=== PATIENT | female | born 1980 | race Hispanic/Latino ===

== ENCOUNTER 2018-07-25 10:40 | Observation (INO) | payer OTHER ==
[2018-07-25] MEDS ORDERED: Lactated Ringer's 1,000 ML IV ONE ×2 (11:27→15:20)
[2018-07-25 11:32] LABS: HEMOGLOBIN 12.7 g/dL (12.0-16.0); MEAN CELL VOLUME 98.2 fl (81.0-99.0); MEAN CORPUSCULAR HEMOGLOBIN 33.6 pg (27.0-31.0); MEAN CORPUSCULAR HGB CONC 34.2 g/dL (33.0-37.0); RBC 3.77 Mil/uL (3.80-5.20); RED CELL DISTRIBUTION WIDTH 12.7 % (11.5-14.5); WHITE BLOOD COUNT 3.5 K/uL (4.8-10.8)
--- NOTE | 2018-07-25 13:50 | CP.SDSHP ---
Same Day Surgery H & P - History Proposed Procedure: Robotic assisted laparoscopy Pre-Op Diagnosis: Endometriosis - Previous Medical/Surgical History Comments: patient instructed to start lovenox POD#1. patient instructed on signs and symptoms of DVT/PE and instructed to go to ER if any present Previous Surgical History: wisdom teeth. egg retrieval. appendectomy - Allergies Allergies: Allergies No Known Allergies Allergy (Verified 07/15/18 17:40) - Physical Exam Vital Signs: Vital Signs 07/25/18 11:26 Temperature 98.5 F Pulse Rate 59 L Respiratory 16 Rate Blood Pressure 92/55 L O2 Sat by Pulse 98 Oximetry Mental Status: Alert & Oriented x3 Neuro: WNL Lungs: WNL - {Optional Preform as Required} Abdomen: WNL - Impression Impression: 38F with endometriosis for laparoscopic resection of endometriosis Pt. Evaluated Today:Candidate for Anesthesia & Procedure: Yes - Date & Time Date: 07/25/18 Time: 13:50 Short Stay Discharge - Short Stay Discharge Admitting Diagnosis/Reason for Visit: N80.0 Disposition: HOME/ ROUTINE Past Patient History - Past Medical History & Family History Past Medical History?: Yes Past Family History: Reviewed and not pertinent - Past Social History Smoking Status: Never Smoked - CARDIAC Hx Cardiac Disorders: No - PULMONARY Hx Respiratory Disorders: No - NEUROLOGICAL Hx Neurological Disorder: No - HEENT Hx HEENT Problems: No - RENAL Hx Chronic Kidney Disease: No - ENDOCRINE/METABOLIC Hx Endocrine Disorders: Yes Hx Hypothyroidism: Yes - HEMATOLOGICAL/ONCOLOGICAL Hx Blood Disorders: Yes Hx Anemia: No Hx Blood Transfusions: No Hx Blood Transfusion Reaction: No Other/Comment: PROTHROMBIN FACTOR Q-WAS TESTED-HAVE A RISK FACTOR - INTEGUMENTARY Hx Dermatological Problems: No - MUSCULOSKELETAL/RHEUMATOLOGICAL Hx Musculoskeletal Disorders: No - GASTROINTESTINAL Hx Gastrointestinal Disorders: No - GENITOURINARY/GYNECOLOGICAL Hx Genitourinary Disorders: No - PSYCHIATRIC Hx Psychophysiologic Disorder: No - SURGICAL HISTORY Hx Surgeries: Yes Other/Comment: IVFX4;EGG RETRIEVAL;APPENDECTOMY;WISDOM TEETH - ANESTHESIA Hx Anesthesia: Yes Hx Anesthesia Reactions: No Hx Malignant Hyperthermia: No Has any member of the family had a problem w/ anesthesia?: No
[2018-07-25] MEDS ORDERED: Bupivacaine 0.5% Inj(30mL) ONE (14:16)
[2018-07-25] MEDS ORDERED: Rocuronium 10 mg/ml (5 ml) ONE (15:05)
[2018-07-25] MEDS ORDERED: Lidocaine 4% (Laryng-O-Jet) Kit MM ONE (15:05)
[2018-07-25] MEDS ORDERED: Propofol 10 mg/ml Inj (20 ML) ONE (15:05)
[2018-07-25] MEDS ORDERED: Succinylcholine Chloride 20 mg/ml Syr (5 ml) IV ONE (15:05)
[2018-07-25] MEDS ORDERED: Etomidate 20 mg/10ml Inj IV ONE (15:06)
[2018-07-25] MEDS ORDERED: Dexamethasone 4 mg/1 ml ONE (15:07)
[2018-07-25] MEDS ORDERED: Midazolam 2 MG/2 ML VIAL ONE (15:20)
[2018-07-25] MEDS ORDERED: Neostigmine 1:1000 (1 mg/ml) Inj ONE (16:23)
[2018-07-25] MEDS ORDERED: Oxycodone/Acetaminophen 5/325 mg Tab PO PRN (16:52)
[2018-07-25] MEDS ORDERED: HYDROmorphone 0.5 mg/0.5 ml ISec IVP PRN (16:57)
[2018-07-25] MEDS ORDERED: Lactated Ringer's 1,000 ML IV SCH (17:00)
[2018-07-25] MEDS: Lactated Ringer's 1,000 ML IV SCH ×2 (17:12→22:31)
[2018-07-25] MEDS ORDERED: Enoxaparin 40 mg Syringe SC STA (21:37)
[2018-07-26 06:26] VITALS: O2SAT 97
--- NOTE | 2018-07-26 07:01 | OP ---
PROCEDURE DATE: 07/25/2018 SURGEON: Jayden Romero MD ANNEALING OVEN OPERATOR: Wilber Ellis MD ANESTHESIOLOGIST: Cj Tobias MD TYPE OF ANESTHESIA: General endotracheal. PREOPERATIVE DIAGNOSES: 1. Incapacitating pelvic pain. 2. History of pelvic endometriosis. POSTOPERATIVE DIAGNOSES: 1. History of pelvic endometriosis. PROCEDURES PERFORMED: 1. Exam under anesthesia. 2. Video assisted hysteroscopy. 3. Cystoscopy. 4. Bilateral ureteral catheterization and injection of IC-Green dye. 5. Robotic da Willy operative laparoscopy. 6. Treatment of endometriosis. 7. Excision of endometriosis. COMPLICATIONS: None. SAMPLES SENT: 1. Left periureteral endometriosis. Uterine Fibriod INDICATION FOR THE PROCEDURE AND CONSENT: The patient had a long history of pelvic pain, dysmenorrhea, dyspareunia, abdominal pain, and bladder pain. The patient had been thoroughly evaluated and counseled regarding the pros and cons of the procedure, the reasonable alternatives, and possible complications. She understood and accepted the risks involved. Literature was provided to the patient. The patient was understanding and given her history and per surgical exam, she was at high risk in an average patient. She accepted all the risks involved, and all the questions had been answered to her satisfaction. FINDINGS OF SURGERY: Genitalia: Normal external genitalia, cervix without lesion and polyps. Hysteroscopy: Hysteroscopy shows a clear uterine cavity with no polyps or masses noticed. Cystoscopy: The cystoscopy was performed to rule out endometriosis and also any interstitial cystitis and also injury. The bladder was normal with no evidence of stone, trigonitis, or cystitis. A positive jet flow was identified in both ureters. Laparoscopy: The upper abdomen appeared to be normal. Gallbladder was normal. Liver edges appeared to be normal. Ascending colon and transverse were normal. There was evidence of adhesions, fibrosis, and endometriosis of the rectovaginal and pelvic sidewalls. The appendix appeared to be . Both fallopian tubes appeared to be patent, although there was evidence of inflammation on the serosal surface of both fallopian tubes, and there was slight conglutination of both fimbriated ends although they both appeared to be functional. There was also evidence of mild hydroureters. DESCRIPTION OF THE PROCEDURE: Initiation of the case: After adequate anesthesia was obtained, the patient was placed in the dorsal lithotomy position, and with extreme care, placement of the patient with hyperextension and hyperflexing of the hips. At this point, the patient was prepped and draped. The surgeon was gowned and gloved. A timeout was taken according to the hospital procedure and the procedure was started. At this point, we performed cystoscopy, bilateral ureteral catheterization. A cystoscope was inserted into the bladder under direct visualization and the bladder was visualized. The bladder was free of lesions and tumors. There was no evidence of interstitial cystitis, and there was only mild amount of trigonitis. At this point, both ureters were identified and appeared to be in their normal anatomical position. At this point, utilizing an open 5-Divehi open-ended catheter, the left ureter was catheterized all the way to the distal ureter, and 5 mL of IC-Green was injected into this ureter. Similarly, the contralateral ureter was catheterized all the way to the distal ureter, and 5 mL of IC-Green was injected into the distal ureter. At this point, the stents were removed, and the cystoscope was removed, and the 16-Divehi Barrientos was inserted into the bladder. At this point, we proceeded with a hysteroscopy. A speculum was placed into vagina, and the anterior lip of the cervix was grasped. The cervix was dilated, and a hysteroscope was inserted into the cavity. The cavity appeared to be of normal size with no evidence of polyps, cysts, adenomyosis, or fibroids. At this point, we proceeded with placement of a trocar and docking of the da Willy Xi robot. The surgeon was re-gowned and gloved, and open laparoscopy was performed by making incision in the umbilicus and the fascia was incised. The peritoneum was entered in a blunt fashion, and the cannula was inserted under direct visualization. The abdomen was insufflated, and under direct visualization, three additional ports were inserted in the left upper quadrant, left mid quadrant, and right upper quadrant. At this point, the da Willy Xi robot was brought into the field and docked, and the instruments were inserted under direct visualization. All this with extreme care not to injure the bowel or another area. As per dictation, the upper abdomen appeared to be normal with no evidence of any lesions. At this point, we proceeded with a left ureterolysis. The ureter appeared to be dilated and was clearly identified utilizing IC-Green fluorescent technology. Anesthesia was made in the peritoneum at the top of the pelvic brim, and the incision was then carried down all the way opening the peritoneum all the way down from the pelvic brim, all the way down to the ovarian fossa, extending the incision below the ovary. It was a progressive dissection where the ureter was progressively lateralized and peritoneum was medialized, thus freeing the ureter all the way down to the cross of the uterine vessels. After this was done, the ureter was freed and lateralized, and a larger peritoneum which had been opened, was excised, and sent to pathology. At this point, with the aid of very slow process, I was able to elevate the ovary and proceed with ovariolysis. At this point, we proceeded with treatment of endometriosis and excision of endometriosis. On the left hand side, fibrosis, especially in the left ovarian fossa was excised. In a very progressive step by step fashion, we dissected off fibrosis containing endometriosis and freed up the whole area. The ureters which had been lateralized. Areas of fibrosis and endometriosis were also identified in the posterior cul-de-sac and in the rectovaginal space which was also affected with endometriosis and fibrosis. At this point, we proceeded with the excision of perirectal endometriosis. The rectovaginal area had significant fibrosis and additional endometriosis was dissected from the posterior aspect of the uterus, and the rectovaginal space was entered at the level of the peritoneal reflection. All this done making sure that no damage to the rectum was performed. At this point, endometriosis was also excised from the right uterosacral area which also was affected by fibrosis and endometriosis. At this point, it was checked for hemostasis and appeared to be excellent. Both fallopian tubes were in good condition and patent. At this point we proceeded with destruction of inflammatory areas utilizing the j-plasma energy device. We checked for hemostasis and organ integrity and all was normal. At this point, the da Willy Xi robot was removed. The abdomen was desufflated, and the incisions were closed in layers with 0 PDS for the fascia and 4-0 Monocryl for the skin. At the end of the procedure, all tips and instrument counts were correct. The patient tolerated the procedure well and was taken to the recovery room in excellent condition. Jayden Romero MD
[2018-07-26] MEDS: Lactated Ringer's 1,000 ML IV SCH (07:18)
[2018-07-26 07:46] LABS: BASO % 0.3 % (0.0-2.0); EOS % 0.2 % (0.0-4.0); HEMOGLOBIN 10.9 g/dL (12.0-16.0); LYMPH # 1.9 K/uL (1.0-4.3); LYMPH % 25.1 % (20.0-40.0); MEAN CORPUSCULAR HEMOGLOBIN 33.3 pg (27.0-31.0); MEAN CORPUSCULAR HGB CONC 33.6 g/dL (33.0-37.0); MEAN PLATELET VOLUME 8.6 fl (7.2-11.7); MONO # 0.5 K/uL (0.0-0.8); MONO % 7.1 % (0.0-10.0); NEUT # 5.1 K/uL (1.8-7.0); NEUT % 67.3 % (50.0-75.0); RBC 3.27 Mil/uL (3.80-5.20); RED CELL DISTRIBUTION WIDTH 12.5 % (11.5-14.5); WHITE BLOOD COUNT 7.5 K/uL (4.8-10.8)
[2018-07-26 08:09] LABS: BLOOD UREA NITROGEN 7 mg/dl (7-17); CALCIUM 8.6 mg/dL (8.4-10.2); GFR NON-AFRICAN AMERICAN > 60
--- NOTE | 2018-07-26 08:28 | CP.PCM.PN ---
Subjective - Date & Time of Evaluation Date of Evaluation: 07/26/18 Time of Evaluation: 08:26 - Subjective Subjective: Patient states pain is well controlled and mild. She had some vaginal bleeding yesterday, but minimal today. Denies CP/SOB/dizziness. Lovenox started last night. +void, walked this am Objective - Vital Signs/Intake and Output Vital Signs (last 24 hours): Temp Pulse Resp BP Pulse Ox 98.6 F 61 18 123/66 97 07/26/18 05:00 07/26/18 05:00 07/26/18 05:00 07/26/18 05:00 07/26/18 05:00 Intake and Output: 07/26/18 07/26/18 06:59 18:59 Intake Total 1680 Output Total 1400 Balance 280 - Medications Medications: Current Medications Enoxaparin Sodium (Lovenox) 40 mg SC DAILY [facility]; Protocol Hydromorphone HCl (Dilaudid) 0.5 mg IVP Q3H PRN PRN Reason: Pain, severe (8-10) Acetaminophen (Ofirmev) 100 mls @ 400 mls/hr IVPB Q6H [facility]; Protocol Stop: 07/26/18 15:16 Last Admin: 07/26/18 03:39 Dose: 400 mls/hr Lactated Ringer's (Lactated Ringer's) 1,000 mls @ 100 mls/hr IV .Q10H [facility] Last Admin: 07/26/18 07:18 Dose: 100 mls/hr Ketorolac Tromethamine (Toradol) 30 mg IVP Q6H [facility] Last Admin: 07/26/18 05:55 Dose: 30 mg Ondansetron HCl (Zofran Inj) 4 mg IVP Q6 PRN PRN Reason: Nausea/Vomiting Oxycodone/Acetaminophen (Percocet 5/325 Mg Tab) 1 tab PO Q4H PRN PRN Reason: Pain, moderate (4-7) Stop: 07/28/18 16:53 - Labs Labs: 07/26/18 07:25 07/26/18 07:25 - GI/Abdominal Exam GI & Abdominal Exam: Soft, Normal Bowel Sounds Assessment and Plan (1) Endometriosis Assessment & Plan: POD#1 s/p robotic assisted laparoscopic excision of endometriosis, myomectomy -d/c home today -pain medication (rx per Dr. Romero) -encourage OOB -f/u 7-10 days call for appt -d/w DR. Romero, agrees with above Status: Acute (2) Uterine fibroid Status: Acute
[2018-07-26 08:50] VITALS: BMI 23.3
[2018-07-26] MEDS: Enoxaparin 40 mg Syringe SC SCH ×2 (09:56→10:05)
[2018-07-26 11:51] VITALS: BP 112/71; PULSE 85; RESP 18; TEMP 98.3
== END 2018-07-26 11:15 | disposition home or self-care (01) ==
LOC: H.OPSURG 10:40 → H.PEDS 16:52
PROVIDERS: ADMIT Obstetrics & Gynecology Reproductive Endocrinology; ATTEND Obstetrics & Gynecology Reproductive Endocrinology
DX: N80.0 Endometriosis of uterus (principal); E03.9 Hypothyroidism, unspecified; D25.9 Leiomyoma of uterus, unspecified; N13.4 Hydroureter; N73.6 Female pelvic peritoneal adhesions (postinfective); N80.1 Endometriosis of ovary; N80.3 Endometriosis of pelvic peritoneum; N80.5 Endometriosis of intestine
CPT/HCPCS: 36415; 52005; 53899; 58660; 80048; 85025; 85027; 86850; 86900; 88305; 96365; 96375; C1729; G0378; J0131; J0690; J1100; J1650; J1885; J2001; J2250; J2405; J2704; J2710; J2765; J3010; J7030; J7120